=== PATIENT | male | born 1950 | race Hispanic/Latino ===

== ENCOUNTER 2025-01-01 05:59 | Day surgery (SDC) | payer MEDICARE ==
[2025-01-01] VITALS (9 sets, daily range): BP systolic 123–189; BP diastolic 60–88; PULSE 50–64; RESP 15–18; TEMP 97–97.7
[~2025-01-01 05:59] MED LIST: ALLO100T PO; FINA5TAB41 PO; FURO20TA4 PO; SIRO0.5T3 PO
[2025-01-01] MEDS ORDERED: LIDOCAINE HCL 1% 20 ML VIAL ONE (07:34)
[2025-01-01] MEDS ORDERED: proPOFol 10 MG/ML 20ML VIAL IV ONE (07:34)
[2025-01-01] MEDS: 0.9%NACL 1000ML 1,000 ML IV ONE (10:53)
[2025-01-01] MEDS ORDERED: CLON1PAT12 TP (11:18)
[2025-01-01] MEDS ORDERED: MULT-1258 PO (11:18)
[2025-01-01] MEDS ORDERED: [UNRECOGNIZED DRUG - OTHER] PO (11:18)
[2025-01-01] MEDS ORDERED: MAGN400C PO (11:18)
[2025-01-01] MEDS ORDERED: CHOL500062 PO (11:18)
[2025-01-01] MEDS ORDERED: CLOP75TA32 PO (11:18)
[2025-01-01] MEDS ORDERED: [UNRECOGNIZED DRUG - OTHER] PO (11:18)
[2025-01-01] MEDS ORDERED: DOXA4TAB3 PO (11:18)
[2025-01-01] MEDS ORDERED: FOLI0.4T6 PO (11:18)
[2025-01-01] MEDS ORDERED: PANT40TA54 PO (11:18)
[2025-01-01] MEDS ORDERED: OMEGA 3 PO (11:18)
[2025-01-01] MEDS ORDERED: SUCR1TAB2 PO (11:18)
[2025-01-01] MEDS ORDERED: GLUCOSAMINE/CHONDR PO (11:18)
[2025-01-01] MEDS ORDERED: L.AC1CAP6 PO (11:18)
== END 2025-01-01 08:50 | disposition home or self-care (01) ==
LOC: ENDO 05:59 → DAH 05:59 → ENDO 08:50
PROVIDERS: ATTEND Internal Medicine Gastroenterology
DX: D50.9 Iron deficiency anemia, unspecified (principal); K29.50 Unspecified chronic gastritis without bleeding; K92.1 Melena; I10 Essential (primary) hypertension; Z90.49 Acquired absence of other specified parts of digestive tract; Z94.4 Liver transplant status; Z79.899 Other long term (current) drug therapy
CPT/HCPCS: 43239; 45378; J7030; J2704; A4620; A4215; J3490